=== PATIENT | male | born 1990 | race African-American/Black ===

== ENCOUNTER 2018-04-09 10:54 | Emergency (ER) | payer SELFPAY ==
[~2018-04-09] VITALS: Ht 160 cm; Wt 56.7 kg
--- NOTE | 2018-04-09 11:15 | NUR ---
BIB [facility] 860, CALLED 911, SUICIDAL IDEATION WITH NO PLAN AT THIS TIME. ON ASSESSMENT, PT DENIES SI, HI. STATES HE WAS "JUST HANGING OUT AT HOME WHEN THE POLICE CAME". PROCEED TO BECOME INCREASINGLY AGITATED AND ARGUING WITH STAFF AND POLICE OFFICERS. PT IS AOX4, AMB, TACHYCARDIC, RR EVEN AND UNLABORED. SKIN CLEAN INTACT. NO ACUTE DISTRESS NOTED. SEEN BY JC DE JESUS AND DR THOMAS. AWAITING ORDERS.
[2018-04-09] MEDS ORDERED: LORAZEPAM INJ 2 MG/ML VIAL ONE (11:17)
[2018-04-09] MEDS ORDERED: HALOPERIDOL LACTATE INJ 5 MG/ML VIAL ONE (11:17)
--- NOTE | 2018-04-09 11:25 | NUR ---
PT PLACED ON MONITOR PER PROTOCOL AFTER MEDICATION ADMINISTRATION
[2018-04-09] MEDS ORDERED: HALOPERIDOL LACTATE INJ 5 MG/ML VIAL IM ONE (11:30)
[2018-04-09] MEDS ORDERED: LORAZEPAM INJ 2 MG/ML VIAL IM ONE (11:30)
--- NOTE | 2018-04-09 11:31 | NUR ---
PT VOMITED X2 Addendum: 04/09/18 at 1201 by CJUWONO MD AWARE
[2018-04-09 11:50] LABS: BASOPHILS # (AUTO) 0.1 /CMM (0.0-0.2); BASOPHILS % (AUTO) 0.5 % (0.0-2.0); EOSINOPHILS % (AUTO) 0.5 % (0.0-6.0); HEMATOCRIT 49 % (39-51); HEMOGLOBIN 16.4 g/dL (13.5-17.5); LYMPHOCYTES # (AUTO) 2.8 /CMM (0.8-4.8); LYMPHOCYTES % (AUTO) 22.8 % (20.0-44.0); MEAN CORPUSCULAR HGB CONC 34 g/dl (31.0-36.0); MEAN CORPUSCULAR VOLUME 89 fL (80-96); MONOCYTES # (AUTO) 0.5 /CMM (0.1-1.30); MONOCYTES % (AUTO) 3.8 % (2.0-12.0); NEUTROPHILS % (AUTO) 72.4 % (43.0-81.0); PLATELET COUNT (AUTO) 260 /CMM (150-450); RED BLOOD CELL COUNT(AUTO) 5.53 MIL/uL (4.5-6.0); WHITE BLOOD COUNT (AUTO) 12.4 K/uL (4.3-11.0)
--- NOTE | 2018-04-09 11:50 | NUR ---
1:1 SITTER REQUESTED FROM [facility]
[2018-04-09 12:01] LABS: CALCIUM, SERUM 9.1 mg/dL (8.5-10.1); POTASSIUM 3.7 mmol/L (3.5-5.1)
[2018-04-09 12:05] LABS: ALBUMIN 4.3 g/dL (3.4-5.0); BILIRUBIN,DIRECT 0.2 mg/dL (0.0-0.2); BILIRUBIN,TOTAL 0.6 mg/dL (0.2-1.0); SALICYLATE 1.2 mg/dL (2.8-20.0); TOTAL PROTEIN, SERUM 8.6 g/dL (6.4-8.2)
--- NOTE | 2018-04-09 12:30 | NUR ---
SITTER AT BEDSIDE, RESTRAINTS DC
--- NOTE | 2018-04-09 13:10 | NUR ---
PT RESTING IN BED, SNORING. VSS. WILL CONT TO MONITOR.
--- NOTE | 2018-04-09 14:25 | NUR ---
PATIENTS CALLED AND LEFT CONTACT INFO LEROY CRISTOBAL
--- NOTE | 2018-04-09 14:55 | NUR ---
Patient is resting comfortably in bed with eyes closed. Easily aroused. VSS
--- NOTE | 2018-04-09 16:03 | NUR ---
GAVE BLANKET AND ORANGE JUICE PER PT REQUEST
[2018-04-09 17:12] LABS: APPEARANCE,URINE Clear (CLEAR); BILIRUBIN,URINE Negative (NEGATIVE); BLOOD, URINE Negative Ery/uL (NEGATIVE); COLOR,URINE Yellow (YELLOW); KETONES,URINE 15 (NEGATIVE); LEUKOCYTE ESTERASE ,URINE Negative (NEGATIVE); NITRITE, URINE Negative (NEGATIVE); PROTEIN,URINE Negative (NEGATIVE); UGLUCOSE Negative (NEGATIVE); UROBILINOGEN,URINE 0.2 EU/dL (0.2)
[2018-04-09 17:42] LABS: BACTERIA,URINE None seen /HPF (None Seen); RBC,URINE 0-2 /HPF (0-2); SQUAMOUS EPITHELIAL CELL,UR Few /HPF (None Seen); WBC,URINE 0-2 /HPF (0-3)
--- NOTE | 2018-04-09 17:52 | NUR ---
Patient is resting comfortably in bed with eyes closed. Easily aroused. VSS
--- NOTE | 2018-04-09 18:09 | NUR ---
CALLED RASHAUN DIRECTOR SALES SUPPORT.
--- NOTE | 2018-04-09 19:30 | NUR ---
PINKY AT BEDSIDE FOR EVAL.
--- NOTE | 2018-04-09 20:58 | NUR ---
Patient is resting comfortably in bed with eyes closed. Easily aroused. VSS
--- NOTE | 2018-04-09 21:29 | NUR ---
Mitali bejarano in ED - 04/09/18 at 2134 by BROCK BP CONTINUES TO BE BELOW 100/60, MD AWARE
--- NOTE | 2018-04-09 22:38 | NUR ---
5150 hold discontinued by Suyapa PARNELL Power Barker Operator.
--- NOTE | 2018-04-09 23:18 | NUR ---
pt ok to discharge per dajuan monroy. Patient discharged to home in stable condition. Written and verbal after care instructions given. Patient verbalizes understanding of instruction.Patient is awake and alert to self, day, and place.pt ambulatory with a steady gait
[2018-04-10 04:57] VITALS: BP 124/80
== END 2018-04-09 23:20 | disposition home or self-care (01) ==
LOC: ER 10:56
DX: R45.851 Suicidal ideations (principal); F10.129 Alcohol abuse with intoxication, unspecified; F19.10 Other psychoactive substance abuse, uncomplicated; F31.9 Bipolar disorder, unspecified; F17.200 Nicotine dependence, unspecified, uncomplicated; Y90.7 Blood alcohol level of 200-239 mg/100 ml
CPT/HCPCS: 36415; 80048-TC; 80076-TC; 80305; 81000-TC; 85025-TC; G0480; J1630; J2060

== ENCOUNTER 2018-10-30 15:26 | Emergency (ER) | payer MEDICAID ==
[~2018-10-30] VITALS: Ht 170.2 cm; Wt 70.3 kg
[2018-10-30 16:10] VITALS: BP 151/89
--- NOTE | 2018-10-30 16:21 | NUR ---
PT DID NOT WANT BE SEEN BY MD. PT WALKED OUT OF EMERGECNY ROOM, PT AMBULATORY WITH STEADY GAIT
== END 2018-10-30 16:23 | disposition left against medical advice (07) ==
LOC: ER 15:31
DX: Z53.21 Procedure and treatment not carried out due to patient leaving prior to being seen by health care provider (principal)

== ENCOUNTER 2019-02-01 22:52 | Emergency (ER) | payer MEDICAID, OTHER ==
[~2019-02-01] VITALS: Ht 170.2 cm; Wt 70.3 kg
--- NOTE | 2019-02-01 23:17 | NUR ---
PT PUT ON 2L N/C. PT WAS SAT 94% ON ROOM AIR. PER DR MEZA. PT NOW SAT 97%
[2019-02-01] MEDS ORDERED: IV NS 0.9% 1,000 ML BAG IV ONE (23:30)
[2019-02-01] MEDS ORDERED: ONDANSETRON HCL/PF 4 MG/2 ML VIAL IVP ONE (23:30)
[2019-02-01 23:34] LABS: BASOPHILS # (AUTO) 0.1 /CMM (0.0-0.2); BASOPHILS % (AUTO) 3.7 % (0.0-2.0); EOSINOPHILS % (AUTO) 0.8 % (0.0-6.0); HEMATOCRIT 39 % (39-51); HEMOGLOBIN 13.3 g/dL (13.5-17.5); LYMPHOCYTES # (AUTO) 1.5 /CMM (0.8-4.8); LYMPHOCYTES % (AUTO) 48.9 % (20.0-44.0); MEAN CORPUSCULAR HGB CONC 34 g/dl (31.0-36.0); MEAN CORPUSCULAR VOLUME 92 fL (80-96); MONOCYTES # (AUTO) 0.4 /CMM (0.1-1.30); MONOCYTES % (AUTO) 12.7 % (2.0-12.0); NEUTROPHILS # (AUTO) 1.1 /CMM (1.8-8.9); NEUTROPHILS % (AUTO) 33.9 % (43.0-81.0); PLATELET COUNT (AUTO) 412 /CMM (150-450); RED BLOOD CELL COUNT(AUTO) 4.29 MIL/uL (4.5-6.0); WHITE BLOOD COUNT (AUTO) 3.1 K/uL (4.3-11.0)
[2019-02-01] MEDS ORDERED: ONDANSETRON HCL/PF 4 MG/2 ML VIAL ONE (23:37)
--- NOTE | 2019-02-01 23:40 | NUR ---
PT BROUGHT TO CT
--- NOTE | 2019-02-01 23:40 | NUR ---
ASUME CARE OF PT. PT BIBRA C/O ETOH AND TOOK UNKNOWN AMOUNT OF SERAQUEL WAITER/WAITRESS CAPTAIN. AAOX3. PT INTERMITENTLY SLEEPING. ON 2L OF 02. 20G RAC WAITER/WAITRESS CAPTAIN. WILL CONTINUE TO MONITOR.
--- NOTE | 2019-02-01 23:42 | NUR ---
[place] [facility] AT [facility]
--- NOTE | 2019-02-01 23:48 | NUR ---
PT BROUGHT BACK FROM CT
[2019-02-02 00:01] LABS: CREATININE 0.8 mg/dL (0.6-1.3); POTASSIUM 3.7 mmol/L (3.5-5.1)
[2019-02-02 00:08] LABS: ALBUMIN 3.4 g/dL (3.4-5.0); BILIRUBIN,TOTAL 0.1 mg/dL (0.2-1.0); TOTAL PROTEIN, SERUM 6.9 g/dL (6.4-8.2)
[2019-02-02] MEDS ORDERED: IV D5/ 0.9% NACL 1,000 ML IV ONE (00:40)
--- NOTE | 2019-02-02 02:05 | NUR ---
Patient is resting comfortably in bed with eyes closed. Easily aroused. VSS.
--- NOTE | 2019-02-02 02:49 | NUR ---
Patient is resting comfortably in bed with eyes closed. Easily aroused. VSS
--- NOTE | 2019-02-02 03:25 | NUR ---
PT USED THE URINAL. APPROX 650 ML YELLOW URINE OUTPUT NOTED. SAMPLE SENT TO LAB.
[2019-02-02] MEDS ORDERED: IV NS 0.9% 1,000 ML BAG IV ONE (03:30)
[2019-02-02 03:35] LABS: APPEARANCE,URINE Clear (CLEAR); BILIRUBIN,URINE Negative (NEGATIVE); BLOOD, URINE Negative Ery/uL (NEGATIVE); COLOR,URINE Yellow (YELLOW); KETONES,URINE Negative (NEGATIVE); LEUKOCYTE ESTERASE ,URINE Negative (NEGATIVE); NITRITE, URINE Negative (NEGATIVE); PH,URINE 6.5 (5.0-8.0); PROTEIN,URINE Negative (NEGATIVE); UGLUCOSE 500 MG/DL mg/dL (NEGATIVE); UROBILINOGEN,URINE 0.2 EU/dL (0.2)
--- NOTE | 2019-02-02 04:42 | NUR ---
Patient is resting comfortably in bed. Easily aroused. VSS.
--- NOTE | 2019-02-02 07:13 | NUR ---
Patient is resting comfortably in bed with eyes closed. Easily aroused. VSS
--- NOTE | 2019-02-02 07:30 | NUR ---
Patient is resting comfortably in bed with eyes closed. Easily aroused. VSS
--- NOTE | 2019-02-02 07:33 | NUR ---
REPORT GIVEN TO SOLOMON PARNELL FOR AURA
--- NOTE | 2019-02-02 07:34 | NUR ---
REPORT RECEIVED FROM ARABELLA PARNELL FOR AURA
--- NOTE | 2019-02-02 08:16 | NUR ---
MASTER DYER, ALONDRA AT BEDSIDE
--- NOTE | 2019-02-02 08:23 | NUR ---
RICHIE CESPEDES AT [facility].
--- NOTE | 2019-02-02 08:37 | NUR ---
Social service consult requested by DANIELLE Morales for alcohol abuse. Pt. is a 28 year old male who was brought to [facility] from a residential house where he was found drinking alcohol and possibly took some Seroquel. Pt. has been in the ED for the past 9 hours. ROB met with the pt. bedside. Pt. is alert and oriented x 4. Pt. appears disheveled. Pt. states he resides at a sober living located in [place]. Pt. is an alcoholic and states he drinks "a lot of vodka" daily and had a lot to drink last night. Pt. has only been at his sober living for the past 3 days. Pt. was at [facility] in November, however did not complete the program due to being kicked out. Pt. requested for ROB to call his [id number] Sylvia Crow to get address and contact to the sober living he resides at. ROB called Sylvia who informed ROB that pt. will need to call [place], window systems administrator prior to going back to the sober living. ROB called [place] and left him a voicemail message requesting a call back.
--- NOTE | 2019-02-02 09:04 | NUR ---
FOOD TRAY PROVIDED.
--- NOTE | 2019-02-02 09:08 | NUR ---
SPOKED TO [facility] PT IS NOT ACCEPTED.
--- NOTE | 2019-02-02 09:31 | NUR ---
Patient is resting comfortably in bed with eyes closed. Easily aroused. VSS
[2019-02-02 09:32] VITALS: BP 104/72
--- NOTE | 2019-02-02 09:40 | NUR ---
ROB contacted DANIELLE Morales in ED to inquire if pt. has spoken with [place]. Per DANIELLE Morales, pt. is not accepted back to the facility. Pt. wants to be discharged to his mother's house. ROB informed Andrew to contact nursing film processing supervisor for taxi voucher for pt. to go to his mother's house. No other social service needs are requested at this time. SW is available if needed. Pt. was provided with appropriate clothing and shoes.
--- NOTE | 2019-02-02 09:52 | NUR ---
Note carlee in EDM - 02/02/19 at 0953 by ALIA Patient discharged to home in stable condition. Written and verbal after care instructions given. Patient verbalizes understanding of instruction. Tap card given. IV removed. Catheter intact and site benign. Pressure and 4x4 applied to site. No bleeding noted.
--- NOTE | 2019-02-02 09:52 | NUR ---
Patient discharged to home in stable condition. Written and verbal after care instructions given. Patient verbalizes understanding of instruction. IV removed. Catheter intact and site benign. Pressure and 4x4 applied to site. No bleeding noted.
== END 2019-02-02 09:54 | disposition home or self-care (01) ==
LOC: ER 22:53
DX: F10.121 Alcohol abuse with intoxication delirium (principal); F31.9 Bipolar disorder, unspecified; R51 Headache; R94.31 Abnormal electrocardiogram [ECG] [EKG]; F17.200 Nicotine dependence, unspecified, uncomplicated; Y90.8 Blood alcohol level of 240 mg/100 ml or more
CPT/HCPCS: 36415; 70450; 72125; 80048; 80076; 80305; 80307; 80329; 81001; 82140; 84484; 85025; 93005; 96374; 99284; G0480; J2405; J7030 ×2; 81000-TC; J7070

== ENCOUNTER 2022-03-06 05:44 | Inpatient (IN) | payer OTHER ==
[~2022-03-06] VITALS: Ht 162.6 cm; Wt 58.1 kg
--- NOTE | 2022-03-06 05:55 | NUR ---
gaurav c/o etoh. vss.
[2022-03-06] MEDS ORDERED: ONDANSETRON 4 MG TAB.RAPDIS ONE (06:47)
[2022-03-06] MEDS ORDERED: LORAZEPAM INJ 2 MG/ML VIAL ONE ×3 (06:48→09:10)
[2022-03-06] MEDS ORDERED: LORAZEPAM INJ 2 MG/ML VIAL IM ONE (07:00)
[2022-03-06] MEDS ORDERED: ONDANSETRON 4 MG TAB.RAPDIS SL ONE (07:00)
[2022-03-06] MEDS ORDERED: IV NS 0.9% 1,000 ML IV ONE (08:00)
[2022-03-06] MEDS ORDERED: LORAZEPAM INJ 2 MG/ML VIAL IV ONE ×3 (08:00→09:30)
[2022-03-06] MEDS ORDERED: Thiamine 100 MG in IV D5W 50 ML IV SCH (08:00)
[2022-03-06 08:50] LABS: BASOPHILS # (AUTO) 0.1 K/uL (0.0-0.2); BASOPHILS % (AUTO) 0.6 % (0.0-2.0); HEMATOCRIT 39 % (39-51); HEMOGLOBIN 12.8 g/dL (13.5-17.5); LYMPHOCYTES # (AUTO) 0.6 K/uL (0.8-4.8); LYMPHOCYTES % (AUTO) 5.7 % (20.0-44.0); MEAN CORPUSCULAR HGB CONC 33 g/dl (31.0-36.0); MEAN CORPUSCULAR VOLUME 88 fL (80-96); MONOCYTES # (AUTO) 0.5 K/uL (0.1-1.30); NEUTROPHILS # (AUTO) 8.7 K/uL (1.8-8.9); NEUTROPHILS % (AUTO) 88.7 % (43.0-81.0); PLATELET COUNT (AUTO) 228 K/uL (150-450); WHITE BLOOD COUNT (AUTO) 9.8 K/uL (4.3-11.0)
[2022-03-06 08:57] LABS: CALCIUM, SERUM 7.4 mg/dL (8.5-10.1); CREATININE 0.8 mg/dL (0.6-1.3); POTASSIUM 3.5 mmol/L (3.5-5.1)
[2022-03-06 09:03] LABS: ALBUMIN 3.3 g/dL (3.4-5.0); BILIRUBIN,TOTAL 0.4 mg/dL (0.2-1.0); TOTAL PROTEIN, SERUM 6.8 g/dL (6.4-8.2)
--- NOTE | 2022-03-06 09:15 | NUR ---
patient connected to the monitor. Food provided and tolerated well. Still shaking ativan given as ordered. Will continue to monitor accordingly.
--- NOTE | 2022-03-06 09:45 | NUR ---
covid swab collected and sent to lab.
[2022-03-06] MEDS ORDERED: ACETAMINOPHEN 325 MG TABLET PO PRN (10:00)
[2022-03-06] MEDS ORDERED: CHLORDIAZEPOXIDE HCL 25 MG CAPSULE PO PRN (10:00)
[2022-03-06] MEDS ORDERED: Z GUARD REMEDY 4 OZ OINT TP PRN (10:00)
--- NOTE | 2022-03-06 10:55 | NUR ---
received a call from Janee JEAN from [facility] management gave verbal auth to admit patient in the hospital.
[2022-03-06] MEDS ORDERED: LURA40TA PO (11:47)
[2022-03-06] MEDS ORDERED: ARIP15TA3 PO (11:47)
[2022-03-06] MEDS ORDERED: TRAZ-182 PO (11:47)
[2022-03-06] MEDS ORDERED: QUET200T PO (11:47)
--- NOTE | 2022-03-06 12:04 | NUR ---
room assigned. 323.1 admitting aware
--- NOTE | 2022-03-06 12:35 | NUR ---
report given to Genny PARNELL to continue care.
--- NOTE | 2022-03-06 12:52 | NUR ---
Wheeled patient via gurney accompanied by RN and emt in no distress. RN assigned at bedside to assume care.
[2022-03-06] MEDS: ONDANSETRON HCL/PF 4 MG/2 ML VIAL IVP PRN ×2 (13:11→19:30)
[2022-03-06] MEDS: IV NS 0.9% 1,000 ML IV PRN ×2 (13:11→23:12)
[2022-03-06] MEDS: HYDROCODONE/APAP 5/325MG TABLET PO PRN (13:21)
[2022-03-06 13:55] VITALS: BP 148/74
--- NOTE | 2022-03-06 14:00 | NUR ---
RN ADMITTING NOTES RECEIVED PATIENT VIA MAYITO ACCOMPANIED BY TWO ER STAFF. PATIENT IS A/Ox3-4 ABLE TO MAKE NEEDS KNOWN. IV ACCESS R HAND #20. INTACT AND PATENT. PATIENT ON ROOM AIR NO S/S OF RESPIRATORY DISTRESS OR DISCOMFORT. PATIENT CONNECTED TO TELE MONITORING SHOWING SINUS TACH HR 119. PATIENT HAD EPISODE OF VOMITING BEFORE ARRIVING TO THE FLOOR AND ANOTHER ONCE IN BED, PRN ZOFRAN ADMINISTERED. PATIENT ALSO HAVING TREMORS AND SHAKING, PRN LIBRIUM ADMINISTERED. PATIENT COMPLAINED OF MODERATE PAIN OF HIS ABDOMEN AND LOWER BACK, PRN NARCO [phone] ADMINISTERED. FULL BODY ASSESSMENT COMPLETED: CARDIAC SOUNDS WNL, LUNG SOUND WNL, GI/ CONTINENT USES URINAL, SKIN INTACT. SAFETY MEASURES IN PLACE: BED LOCKED AND IN LOWEST POSITION, SIDE RAILS UP x2, CALL LIGHT WITHIN REACH, HOB ELEVATED. WILL CONTINUE TO MONITOR.
[2022-03-06 16:00] VITALS: BP 149/95
[2022-03-06] MEDS: MORPHINE SULFATE INJ 4 MG/ML DISP.SYRIN IV PRN (17:06)
--- NOTE | 2022-03-06 17:40 | NUR ---
RN NOTES PATIENT COMPLAINED OF PAIN OF ABDOMEN, PRN MORPHINE ADMINISTERED. WILL CONTINUE TO MONITOR.
--- NOTE | 2022-03-06 19:01 | NUR ---
BUILDING RENTAL MANAGER CLOSING NOTES PATIENT SLEEPING IN BED, A/Ox4. ABLE TO VERBALIZE NEEDS. STABLE ON ROOM AIR, NO S/S OF RESPIRATORY DISTRESS. PATIENT IS ON TELE MONITORING SHOWING SINUS TACH HR 105. NO C/O OR S/S OF DISTRESS OR DISCOMFORT. IV ACCESS R HAND #20 G NS @125 ML/HR. INTACT AND PATENT. PATIENT USES URINAL. SKIN IS INTACT. ALL PRESCRIBED MEDICATION ADMINISTERED. SAFETY MEASURES MAINTAINED: BED LOCKED AND IN LOWEST POSITION, SIDE RAILS UPx2, CALL LIGHT WITHIN REACH, HOB ELEVATED. WILL ENDORSE TO NEXT SHIFT ANY AURA.
--- NOTE | 2022-03-06 19:25 | NUR ---
MUSEUM SECURITY CHIEF OPENING NOTES RECEIVED PATIENT AWAKE IN BED. PATIENT IS ALERT AND ORIENTED TIMES 4. NOTED WITH SHAKING AND TALKING IN LOW PITCH SOUND. NOTED WITH 2 EPISODES OF VOMITING. AND SHAKING. IV ACCESS ON THE RIGHT HAND AJITH # 20 INTACT, RUNNING NS AT 125 ML/HR. ON TELE MONITOR READING ST 105. ABLE TO MAKE NEEDS KNOWN. WILL ADMINISTER PRN LIBRIUM AND ZOFRAN FOR VOMITING. PADDED SIDE RAILS FOR SEIZURE PRECAUTION. HOB ELEVATED FOR ASPIRATION PRECAUTION. ALL SAFETY MEASURES IN PLACE. GAVE 2 ICE PACKS UNDER ARMS AND WET TOWEL ON THE FOREHEAD FOR COMFORT. SIDE RAILS UP TIMES 2. BED LOCKED ON. TABLE AND CALL LIGHT IN EASY REACH. REMINDED THE PATIENT TO CALL FOR ANY ASSISTANCE AND AVOID TO STAND UP. PATIENT VERBALIZED UNDERSTANDING. WILL CONTINUE TO MONITOR CLOSELY.
[2022-03-06] MEDS: CHLORDIAZEPOXIDE HCL 25 MG CAPSULE PO PRN (19:27)
--- NOTE | 2022-03-06 19:27 | NUR ---
RN NOTES PRN LIBRIUM GIVEN ORDERED AT 1927 PM.
--- NOTE | 2022-03-06 19:30 | NUR ---
RN NOTES PRN ZOFRAN GIVEN ORDERED FOR 2 EPISODES OF VOMITING.
[2022-03-06 20:00] VITALS: BP 145/83
[2022-03-06] MEDS: TRAZODONE 50 MG TABLET PO SCH (21:48)
[2022-03-06] MEDS: QUETIAPINE FUMARATE 100 MG TABLET PO SCH (21:48)
[2022-03-07] VITALS: BP 129/75
[2022-03-07 04:00] VITALS: BP 130/86
[2022-03-07] MEDS: MORPHINE SULFATE INJ 4 MG/ML DISP.SYRIN IV PRN ×3 (04:26→19:44)
--- NOTE | 2022-03-07 04:26 | NUR ---
RN NOTES PRN MORPHINE GIVEN ORDERED AT 0426 FOR ABDOMINAL PAIN OF 8/10. WILL REASSESS IN 30 MIN.
[2022-03-07 05:55] LABS: CALCIUM, SERUM 8.5 mg/dL (8.5-10.1); CREATININE 0.9 mg/dL (0.6-1.3); MAGNESIUM 1.8 mg/dL (1.8-2.4); POTASSIUM 3.1 mmol/L (3.5-5.1)
--- NOTE | 2022-03-07 06:13 | NUR ---
RT EKG completed at 0530, results given to psychiatric aide Grace.
--- NOTE | 2022-03-07 06:35 | NUR ---
MOTORCYCLE MECHANIC APPRENTICE CLOSING NOTES PATIENT AWAKE IN BED. PATIENT IS ALERT AND ORIENTED TIMES 4. IV ACCESS ON THE RIGHT HAND AJITH # 20 INTACT, RUNNING NS AT 125 ML/HR. ON TELE MONITOR READING SR 95 105. ABLE TO MAKE NEEDS KNOWN. HOB ELEVATED FOR ASPIRATION PRECAUTION. ALL DUE MEDS GIVEN ORDERED. ALL SAFETY MEASURES IN PLACE. SIDE RAILS UP TIMES 2. BED LOCKED . TABLE AND CALL LIGHT IN EASY REACH. REMINDED THE PATIENT TO CALL FOR ANY ASSISTANCE AND AVOID TO STAND UP. PATIENT VERBALIZED UNDERSTANDING. WILL ENDORSE FOR AURA.
--- NOTE | 2022-03-07 07:25 | NUR ---
SAFE DEPOSIT BOX RENTAL CLERK OPENING NOTES RECEIVED PATIENT AWAKE IN BED, AOX4, ABLE TO MAKE NEEDS KNOWN. ON ROOM AIR WITH NO SOB NOTED. IV ACCESS ON THE RIGHT HAND G#20 INTACT, RUNNING NS AT 125 ML/HR. ON TELE MONITOR, CURRENTLY READING SR 83 BPM. SAFETY MEASURES IN PLACE: SIDE RAILS UP TIMES 2, PADDED SEIZURE PRECAUTION. BED LOCKED IN LOWEST POSITION, TRAY TABLE AND CALL LIGHT IN EASY REACH. PATIENT IS AWARE TO USE THE CALL LIGHT FOR ASSISTANCE MAINTAINED ASPIRATION PRECAUTION: HOB ELEVATED. WILL CONTINUE TO MONITOR.
[2022-03-07 07:29] LABS: BASOPHILS % (AUTO) 0.6 % (0.0-2.0); EOSINOPHILS % (AUTO) 1.7 % (0.0-6.0); HEMATOCRIT 42 % (39-51); HEMOGLOBIN 13.9 g/dL (13.5-17.5); LYMPHOCYTES # (AUTO) 1.4 K/uL (0.8-4.8); LYMPHOCYTES % (AUTO) 28.8 % (20.0-44.0); MEAN CORPUSCULAR HGB CONC 33 g/dl (31.0-36.0); MEAN CORPUSCULAR VOLUME 89 fL (80-96); MONOCYTES # (AUTO) 0.3 K/uL (0.1-1.30); MONOCYTES % (AUTO) 6.9 % (2.0-12.0); PLATELET COUNT (AUTO) 192 K/uL (150-450); RED BLOOD CELL COUNT(AUTO) 4.66 MIL/uL (4.5-6.0); WHITE BLOOD COUNT (AUTO) 4.8 K/uL (4.3-11.0)
[2022-03-07] MEDS: PANTOPRAZOLE 40 MG TABLET.DR PO SCH (07:53)
[2022-03-07] MEDS: CHLORDIAZEPOXIDE HCL 25 MG CAPSULE PO PRN ×3 (07:53→21:01)
[2022-03-07 08:00] VITALS: BP 143/84
--- NOTE | 2022-03-07 08:00 | NUR ---
RN NOTES - PATIENT APPEARS TO BE AGITATED, SHOWING HAND TREMORS, SWEATING, GIVEN LIBRIUM 50 MG PRN ORDERED, WILL CONTINUE TO MONITOR.
[2022-03-07] MEDS: HYDROCODONE/APAP 5/325MG TABLET PO PRN ×2 (08:02→16:57)
--- NOTE | 2022-03-07 08:05 | NUR ---
RN NOTES - PAIN MANAGEMENT PATIENT COMPLAINING OF 7/10 ABDOMINAL PAIN, SWEATING, GUARDING. ADMINISTERED 5/325 NORCO AND WILL CONTINUE TO MONITOR.
[2022-03-07] MEDS: ARIPIPRAZOLE 2 MG TABLET PO SCH (08:40)
[2022-03-07] MEDS: THIAMINE HCL 100 MG TABLET PO SCH (08:40)
[2022-03-07] MEDS ORDERED: POTASSIUM CHLORIDE 20 MEQ POWDER PACKET PO ONE ×2 (09:00→12:00)
[2022-03-07] MEDS: IV NS 0.9% 1,000 ML IV PRN ×2 (09:27→16:57)
[2022-03-07 12:00] VITALS: BP 123/70
--- NOTE | 2022-03-07 12:30 | NUR ---
RN NOTES - PAIN MANAGEMENT PATIENT COMPLAINING OF 8/10 ABDOMINAL PAIN, SWEATING, GUARDING. ADMINISTERED MORPHINE SULFATE 4MG IV, WILL CONTINUE TO MONITOR.
--- NOTE | 2022-03-07 14:20 | NUR ---
RN NOTES - AGITATED AFTER PT EVAL, SHOWING HAND TREMORS, SWEATING, GIVEN LIBRIUM 50 MG PRN ORDERED, WILL CONTINUE TO MONITOR.
[2022-03-07 16:00] VITALS: BP 136/84
--- NOTE | 2022-03-07 17:00 | NUR ---
RN NOTES - PAIN MANAGEMENT PATIENT COMPLAINING OF 7/10 ABDOMINAL PAIN, SWEATING, GUARDING. ADMINISTERED 5/325 NORCO AND WILL CONTINUE TO MONITOR.
--- NOTE | 2022-03-07 19:40 | NUR ---
DIVIDEND DEPOSIT ENTRY CLERK CLOSING NOTES PATIENT AWAKE IN BED, AOX4, ABLE TO MAKE NEEDS KNOWN. ON ROOM AIR WITH NO SOB NOTED NOR ANY APPARENT DISTRESS. IV ACCESS ON THE RIGHT HAND G#20 INTACT, RUNNING NS AT 125 ML/HR. ON TELE MONITOR SHOWING READING OF SR 90 BPM. SAFETY MEASURES MAINTAINED: SIDE RAILS UP TIMES 2, PADDED SEIZURE PRECAUTION. BED LOCKED IN LOWEST POSITION, TRAY TABLE AND CALL LIGHT IN EASY REACH. PATIENT IS AWARE TO USE THE CALL LIGHT FOR ASSISTANCE MAINTAINED ASPIRATION PRECAUTION: HOB ELEVATED. NO N/V NOTED, NO PAIN NOR DISCOMFORT NOTED. ENDORSED TO THE NEXT STENCILING MACHINE TENDER NURSE.
--- NOTE | 2022-03-07 19:49 | NUR ---
INSPECTOR HAIRSPRING TRUING OPENING NOTES: RECEIVED PATIENT AWAKE IN BED, BED IN LOW POSITION CALL LIGHTS WITHIN REACH, NO COMPLAIN OF PAIN AND DISCOMFORT AT THIS TIME, ON ROOM AIR SATURATING WELL, PATIENT IS A/OX4 ABLE TO MAKE NEEDS KNOWN, ON TELE MONITOR- SR 78 , IV LINE AT RIGHT HAND #20 WITH ONGOING 0.9NS@125ML/HR INFUSING WELL, PATIENT KEPT CLEAN AND DRY ALL NEEDS MET WILL CONTINUE TO MONITOR.
[2022-03-07 19:57] VITALS: BP 148/96
[2022-03-07] MEDS: TRAZODONE 50 MG TABLET PO SCH (21:46)
[2022-03-07] MEDS: QUETIAPINE FUMARATE 100 MG TABLET PO SCH (21:46)
[2022-03-08] VITALS: BP 119/71
[2022-03-08] MEDS: MORPHINE SULFATE INJ 4 MG/ML DISP.SYRIN IV PRN ×3 (00:13→09:34)
[2022-03-08] MEDS: IV NS 0.9% 1,000 ML IV PRN (00:13)
[2022-03-08 04:00] VITALS: BP 112/63
[2022-03-08 05:57] LABS: CALCIUM, SERUM 7.8 mg/dL (8.5-10.1); CREATININE 0.9 mg/dL (0.6-1.3); POTASSIUM 3.4 mmol/L (3.5-5.1)
--- NOTE | 2022-03-08 06:23 | NUR ---
BOILER SHOP MECHANIC CLOSING NOTES: PATIENT SLEEP IN BED COMFORTABLY, BED IN LOW POSITION CALL LIGHT WITHIN REACH, NO COMPLAIN OF PAIN AND DISCOMFORT AT THIS TIME, ON O2 INHALATION AT 2LPM SATURATING WELL, PATIENT WAS A/OX 4 ABLE TO MAKE NEEDS KNOWN, ON PAIN MANAGEMENT ON TELE [id number], PATIENT KEPT CLEAN AND DRY ALL NEEDS MET ENDORSE TO INCOMING SHIFT.
[2022-03-08 07:00] VITALS: BP 133/81
--- NOTE | 2022-03-08 07:00 | NUR ---
RADIO SPORTSCASTER OPENING NOTES PATIENT LAYING IN BED, A/O X 3, ABLE TO MAKE NEEDS KNOWN, TOLERATING WELL ON 2 LPM O2 VIA CANNULA WITH NO S/S RESPIRATORY DISTRESS. TELE MONITOR IN PLACE READING NSR 70. SAFETY MEASURES IN PLACE: BED IN LOWEST LOCKED POSITION, SIDE RAILS UP X 2, CALL LIGHT WITHIN REACH. WILL CONTINUE TO MONITOR.
[2022-03-08] MEDS ORDERED: POTASSIUM CHLORIDE 20 MEQ TAB.PRT.SR PO ONE ×2 (08:00→11:00)
[2022-03-08] MEDS: CHLORDIAZEPOXIDE HCL 25 MG CAPSULE PO PRN (08:02)
[2022-03-08] MEDS: HYDROCODONE/APAP 5/325MG TABLET PO PRN (08:09)
[2022-03-08] MEDS: ARIPIPRAZOLE 2 MG TABLET PO SCH (08:10)
[2022-03-08] MEDS: THIAMINE HCL 100 MG TABLET PO SCH (08:10)
[2022-03-08] MEDS: PANTOPRAZOLE 40 MG TABLET.DR PO SCH (08:10)
--- NOTE | 2022-03-08 11:00 | NUR ---
CONVEYOR OPERATORSYSTEMS ADMINISTRATION ANALYST NOTES PATIENT MADE AWARE OF MD DISCHARGE ORDERS AND BECAME VERY AGITATED. PATIENT BEGAN THROWING OBJECTS WITHIN HIS ROOM AND BECAME VERBALLY ABUSIVE AND THREATENING TOWARD STAFF. PATIENT REPEATELY STATED "FUCKING CHINK DOCTOR" AND THREATENED VIOLENCE. PATIENT WAS ESCORTED OFF OF UNIT AND OUT OF HOSPITAL BY SECURITY AND STAFF. IV LINE, ID BAND, AND TELE MONITOR WERE REMOVED PRIOR TO LEAVING FACILITY. PRESCRIPTION GIVEN TO PATIENT. PATIENT STABLE AT TIME OF DISCHARGE. Addendum: 03/08/22 at 1317 by KHADAR PALMER RN [id number]
== END 2022-03-08 11:40 | disposition home or self-care (01) | DRG 422 ==
LOC: ER 05:45 → TELE 12:27
PROVIDERS: ADMIT Nurse Practitioner Acute Care; ATTEND Nurse Practitioner Acute Care
DX: E86.0 Dehydration (principal); F25.9 Schizoaffective disorder, unspecified; F10.239 Alcohol dependence with withdrawal, unspecified; F17.210 Nicotine dependence, cigarettes, uncomplicated; E87.6 Hypokalemia; F31.9 Bipolar disorder, unspecified; G47.00 Insomnia, unspecified
CPT/HCPCS: 36415; 80048-TC; 80053-TC; 83690-TC; 83735-TC; 84100-TC; 85025-TC; 87081-TC; 97112-TC; 97116-TC; 97530-TC; C9803; G0378; G0480; J2060; J2270; J2405; J3411; J7030; J7060; Q0162

== ENCOUNTER 2022-03-25 13:27 | Inpatient (IN) | payer OTHER ==
[~2022-03-25] VITALS: Ht 165.1 cm; Wt 60.3 kg
[~2022-03-25 13:27] MED LIST: ARIP15TA3 PO; LURA40TA PO; QUET200T PO; TRAZ-182 PO
--- NOTE | 2022-03-25 13:27 | NUR ---
TO ER BED 14. BIB RA FROM HOME C/O ALCOHOL WITHDRAWAL PT HAS TREMORS AND STATED THAT HE HAD A SEIZURE THIS MORNING, ABDOMINAL PAIN 9/10. PT STATED THAT HIS LAST DRINK WAS 2 DAYS AGO. VITALS ARE WITHIN NORMAL LIMITS, NO RESPIRATORY DISTRESS NOTED. AWAITING MD BAEZ.
--- NOTE | 2022-03-25 14:06 | NUR ---
ESTABLISHED IV 20G LEFT WRIST. BLOOD DRAWN AND SENT TO LAB.
[2022-03-25 14:33] LABS: BASOPHILS % (AUTO) 0.5 % (0.0-2.0); HEMATOCRIT 43 % (39-51); HEMOGLOBIN 14.2 g/dL (13.5-17.5); LYMPHOCYTES % (AUTO) 13.3 % (20.0-44.0); MEAN CORPUSCULAR HGB CONC 33 g/dl (31.0-36.0); MEAN CORPUSCULAR VOLUME 87 fL (80-96); MONOCYTES # (AUTO) 0.5 K/uL (0.1-1.30); MONOCYTES % (AUTO) 6.8 % (2.0-12.0); NEUTROPHILS % (AUTO) 79.4 % (43.0-81.0); PLATELET COUNT (AUTO) 134 K/uL (150-450); RED BLOOD CELL COUNT(AUTO) 4.88 MIL/uL (4.5-6.0); WHITE BLOOD COUNT (AUTO) 7.6 K/uL (4.3-11.0)
[2022-03-25 14:57] LABS: CALCIUM, SERUM 9.7 mg/dL (8.5-10.1); CARBON DIOXIDE 24 mmol/L (21-32); CHLORIDE 89 mmol/L (98-107); CREATININE 0.9 mg/dL (0.6-1.3); GLUCOSE 99 mg/dL (74-106); POTASSIUM 2.9 mmol/L (3.5-5.1); SODIUM SERUM 126 mmol/L (136-145); UREA NITROGEN, BLOOD 5 mg/dL (7-18)
[2022-03-25] MEDS ORDERED: IV NS 0.9% 1,000 ML IV ONE (15:00)
[2022-03-25] MEDS ORDERED: ONDANSETRON HCL/PF - ER 4 MG/2 ML VIAL IV ONE (15:00)
[2022-03-25] MEDS ORDERED: LORAZEPAM INJ 2 MG/ML VIAL IV ONE ×2 (15:00→18:30)
[2022-03-25] MEDS ORDERED: ONDANSETRON HCL/PF 4 MG/2 ML VIAL ONE (15:02)
[2022-03-25] MEDS ORDERED: LORAZEPAM INJ 2 MG/ML VIAL ONE ×2 (15:03→18:34)
[2022-03-25 15:04] LABS: ALANINE AMINOTRANSFERASE 410 U/L (12-78); ALBUMIN 4.2 g/dL (3.4-5.0); ALCOHOL, BLOOD < 3 mg/dL (0-0); ALKALINE PHOSPHATASE 111 U/L (46-116); ASPARTATE AMINOTRANSFERASE 398 U/L (15-37); BILIRUBIN,DIRECT 0.3 mg/dL (0.0-0.2); BILIRUBIN,TOTAL 1.2 mg/dL (0.2-1.0); TOTAL PROTEIN, SERUM 8.1 g/dL (6.4-8.2)
[2022-03-25 15:10] LABS: ACETAMINOPHEN < 10 ug/ml (10-30)
--- NOTE | 2022-03-25 16:10 | NUR ---
URINE COLLECTED AND SENT
[2022-03-25] MEDS ORDERED: POTASSIUM CL. PREMIX PERIPHER. 50 ML ONE ×4 (16:31→20:50)
[2022-03-25 16:37] LABS: MAGNESIUM 1.4 mg/dL (1.8-2.4)
--- NOTE | 2022-03-25 16:45 | NUR ---
PATIENT TAKEN TO CT VIA MAYITO
[2022-03-25] MEDS: POTASSIUM CL. PREMIX PERIPHER. 50 ML IV SCH ×6 (16:55→23:30)
--- NOTE | 2022-03-25 16:58 | NUR ---
SWAB FOR COVID19 SENT TO LAB
[2022-03-25] MEDS ORDERED: Magnesium 1GM/D5W 100ML PREMIX 100 ML IV SCH (17:00)
--- NOTE | 2022-03-25 17:32 | NUR ---
SPOKE WITH MIRANDA CLARK AND WAS GIVEN VERBAL AUTHORIZATION TO ADMIT
[2022-03-25 17:47] LABS: BILIRUBIN,URINE NEGATIVE (NEGATIVE); COLOR,URINE YELLOW (YELLOW); LEUKOCYTE ESTERASE ,URINE NEGATIVE (NEGATIVE); NITRITE, URINE NEGATIVE (NEGATIVE); PH,URINE 8.5 (5.0-8.0); PROTEIN,URINE NEGATIVE (NEGATIVE); UGLUCOSE NEGATIVE (NEGATIVE)
[2022-03-25] MEDS ORDERED: MORPHINE SULFATE INJ 2 MG/ML DISP.SYRIN IV ONE (18:30)
[2022-03-25] MEDS ORDERED: MORPHINE SULFATE INJ 2 MG/ML DISP.SYRIN ONE (18:34)
[2022-03-25 18:54] LABS: BACTERIA,URINE None seen /HPF (None Seen); RBC,URINE 0-2 /HPF (0-2); SQUAMOUS EPITHELIAL CELL,UR 0-2 /HPF (None Seen); WBC,URINE 0-2 /HPF (0-3)
[2022-03-25] MEDS: Magnesium 1GM/D5W 100ML PREMIX 100 ML IV SCH ×2 (19:00→20:00)
[2022-03-25] MEDS ORDERED: ONDANSETRON HCL/PF 4 MG/2 ML VIAL IVP PRN (21:00)
[2022-03-25] MEDS ORDERED: ACETAMINOPHEN 325 MG TABLET PO PRN (21:00)
--- NOTE | 2022-03-25 21:24 | NUR ---
BED 840-1
--- NOTE | 2022-03-25 21:36 | NUR ---
REPORT GIVEN TO CARA PARNELL ROOM 326-1 FOR AURA
[2022-03-25] MEDS ORDERED: POTASSIUM CL. PREMIX PERIPHER. 100 ML ONE (21:38)
--- NOTE | 2022-03-25 21:50 | NUR ---
RN RECEIVING PATIENT FROM ER NOTE PATIENT ARRIVED TO UNIT STABLE VIA GURNEY FROM ER. A/OX4. NO S/S OF DISTRESS, BREATHING WITHOUT DIFFICULTY ON ROOM AIR. L-WRIST #20 SL INTACT AND PATENT; R-WRIST #22 INTACT AND PATENT. TELE READS SR 96. UPON ASSESSMENT PATIENT REVEALED HE HAS SI AND HI. CHARGE NURSE, JESSICA, NOTIFIED; ON-CALL, JUSTIN, NOTIFIED. PATIENT WAS ORIENTED TO THE UNIT. PATIENT GIVEN CALL ADAMSON AND INSTRUCTED ON ITS USE. PATIENT'S BELONGINGS ACCOUNTED FOR, LOGGED INTO SHEET, AND PLACED IN CHART. TELE MONITOR SUCCESSFULLY ADMINISTERED. SAFETY MEASURES IN PLACE: BED LOCKED AND AT LOWEST POSITION, RAILS UP X2 (PADDED FOR SEIZURE PRECAUTIONS), CALL ADAMSON WITHIN REACH. WILL CONTINUE TO MONITOR PATIENT.
[2022-03-25] MEDS: CHLORDIAZEPOXIDE HCL 25 MG CAPSULE PO SCH (22:45)
[2022-03-25] MEDS: NICOTINE PATCH (14MG) 14 MG PATCH.TD24 TD SCH (22:45)
[2022-03-26] VITALS: BP 137/84
[2022-03-26] MEDS ORDERED: KETOROLAC TROMETHAMINE INJ 30 MG/ML VIAL IV PRN
[2022-03-26 00:42] VITALS: BP 146/90
[2022-03-26] MEDS: KETOROLAC TROMETHAMINE INJ 30 MG/ML VIAL IV PRN ×4 (02:47→22:05)
[2022-03-26] MEDS: IV NS 0.9% 1,000 ML IV PRN ×3 (04:59→21:54)
[2022-03-26] MEDS: CHLORDIAZEPOXIDE HCL 25 MG CAPSULE PO SCH ×3 (05:24→21:24)
[2022-03-26 06:54] LABS: BASOPHILS % (AUTO) 0.4 % (0.0-2.0); EOSINOPHILS % (AUTO) 0.7 % (0.0-6.0); HEMATOCRIT 41 % (39-51); HEMOGLOBIN 13.4 g/dL (13.5-17.5); LYMPHOCYTES # (AUTO) 1.1 K/uL (0.8-4.8); LYMPHOCYTES % (AUTO) 11.5 % (20.0-44.0); MEAN CORPUSCULAR HGB CONC 33 g/dl (31.0-36.0); MEAN CORPUSCULAR VOLUME 89 fL (80-96); MONOCYTES # (AUTO) 0.2 K/uL (0.1-1.30); MONOCYTES % (AUTO) 1.7 % (2.0-12.0); NEUTROPHILS # (AUTO) 7.8 K/uL (1.8-8.9); NEUTROPHILS % (AUTO) 85.7 % (43.0-81.0); PLATELET COUNT (AUTO) 101 K/uL (150-450); RED BLOOD CELL COUNT(AUTO) 4.57 MIL/uL (4.5-6.0); WHITE BLOOD COUNT (AUTO) 9.1 K/uL (4.3-11.0)
--- NOTE | 2022-03-26 07:00 | NUR ---
RN CLOSING NOTE PATIENT ASLEEP IN BED. A/OX4. NO S/S OF DISTRESS, BREATHING WITHOUT DIFFICULTY ON ROOM AIR. R-WRIST #22 INTACT AND PATENT W/ NS 125ML/HR. TELE READS SR 89. SAFETY MEASURES IN PLACE: BED LOCKED AND AT LOWEST POSITION, RAILS UP X2, CALL ADAMSON WITHIN REACH. WILL ENDORSE TO NEXT SHIFT FOR AURA.
[2022-03-26 07:15] LABS: CALCIUM, SERUM 8.9 mg/dL (8.5-10.1); CREATININE 0.8 mg/dL (0.6-1.3); MAGNESIUM 2.3 mg/dL (1.8-2.4); PHOSPHORUS 4.8 mg/dL (2.5-4.9); POTASSIUM 3.1 mmol/L (3.5-5.1)
[2022-03-26 08:00] VITALS: BP 141/72
[2022-03-26] MEDS: THIAMINE HCL 100 MG TABLET PO SCH (08:07)
[2022-03-26] MEDS: PANTOPRAZOLE 40 MG VIAL IV SCH (08:07)
[2022-03-26] MEDS: FOLIC ACID 1 MG TABLET PO SCH (08:07)
[2022-03-26] MEDS: NICOTINE PATCH (14MG) 14 MG PATCH.TD24 TD SCH (08:07)
[2022-03-26] MEDS: LORAZEPAM INJ 2 MG/ML VIAL IV PRN (10:03)
[2022-03-26] MEDS ORDERED: POTASSIUM CHLORIDE 20 MEQ TAB.PRT.SR PO ONE (11:00)
[2022-03-26 12:00] VITALS: BP 138/79
[2022-03-26 16:00] VITALS: BP 138/80
[2022-03-26] MEDS: ARIPIPRAZOLE 5 MG TABLET PO SCH (17:05)
--- NOTE | 2022-03-26 18:35 | NUR ---
END OF SHIFT SUMMARY PATIENT IS A/O X4. ON RA SATURATING WELL. ABLE TO MAKE NEEDS KNOWN. PER PT HIS IV ACCESS WAS REMOVED ACCIDENTALLY. REINSERTED A NEW IV ACCESS ON R HAND #22G, INTACT AND PATENT. PAIN MANAGED WITH TORADOL. POTASSIUM REPLACED. CONTINENT, USES THE URINAL. INDEPENDENT WITH REPOSITIONING. SAFETY MEASURES MAINTAINED. BED IN LOWEST POSITION, BRAKES LOCKED. SIDE RAILS UP X2. CALL LIGHT WITHIN REACH. WILL ENDORSE CONTINUITY OF CARE TO ONCOMING SHIFT.
--- NOTE | 2022-03-26 19:30 | NUR ---
MANAGER ANIMAL OPENING NOTE RECEIVED PT AWAKE IN BED. A/O X4 AND ABLE TO MAKE NEEDS KNOWN. PT STABLE ON ROOM AIR. NO SOB OR S/S OF RESPIRATORY DISTRESS. BREATHING EVEN AND UNLABORED. ON EXTERNAL TROUBLE SHOOTER READING SR 83 BPM. IV ACCESS R HAND 22G, INTACT AND PATENT, RUNNING NS @ 125 ML/HR. SAFETY PRECAUTIONS IN PLACE. BED IN LOWEST LOCKED POSITION, HOB ELEVATED, SIDE RAILS UP X2, AND CALL LIGHT AND TABLE WITHIN REACH. ALL NEEDS MET AT THIS TIME.
[2022-03-26 20:00] VITALS: BP 146/0
[2022-03-26] MEDS ORDERED: QUETIAPINE FUMARATE 100 MG TABLET PO SCH (22:00)
--- NOTE | 2022-03-26 22:05 | NUR ---
RN NOTE PT COMPLAINED OF R ABDOMINAL PAIN 10/24. ADMINISTERED TORADOL 30 MG FOR SEVERE PAIN ORDERED. MADE COMFORTABLE IN BED. ALL NEEDS MET AT THIS TIME.
[2022-03-27] VITALS: BP 115/57
[2022-03-27 04:00] VITALS: BP 112/75
[2022-03-27] MEDS: CHLORDIAZEPOXIDE HCL 25 MG CAPSULE PO SCH ×2 (04:14→12:15)
[2022-03-27] MEDS: KETOROLAC TROMETHAMINE INJ 30 MG/ML VIAL IV PRN ×2 (05:20→11:45)
[2022-03-27 06:46] LABS: BASOPHILS % (AUTO) 0.5 % (0.0-2.0); EOSINOPHILS % (AUTO) 2.8 % (0.0-6.0); HEMATOCRIT 38 % (39-51); HEMOGLOBIN 12.6 g/dL (13.5-17.5); LYMPHOCYTES # (AUTO) 0.9 K/uL (0.8-4.8); LYMPHOCYTES % (AUTO) 15.2 % (20.0-44.0); MEAN CORPUSCULAR HGB CONC 33 g/dl (31.0-36.0); MEAN CORPUSCULAR VOLUME 89 fL (80-96); MONOCYTES # (AUTO) 0.2 K/uL (0.1-1.30); MONOCYTES % (AUTO) 3.6 % (2.0-12.0); NEUTROPHILS # (AUTO) 4.5 K/uL (1.8-8.9); NEUTROPHILS % (AUTO) 77.9 % (43.0-81.0); PLATELET COUNT (AUTO) 90 K/uL (150-450); RED BLOOD CELL COUNT(AUTO) 4.25 MIL/uL (4.5-6.0); WHITE BLOOD COUNT (AUTO) 5.8 K/uL (4.3-11.0)
--- NOTE | 2022-03-27 06:54 | NUR ---
REED CLEANER CLOSING NOTE PT AWAKE IN BED. A/O X4 AND ABLE TO MAKE NEEDS KNOWN. PT STABLE ON ROOM AIR. NO SOB OR S/S OF RESPIRATORY DISTRESS. BREATHING EVEN AND UNLABORED. ON EXTERNAL POND SUPERVISOR READING SR 74 BPM. IV ACCESS AIDEE 22G, INTACT AND PATENT, RUNNING NS @ 125 ML/HR. ALL DUE MEDS GIVEN ORDERED. SAFETY PRECAUTIONS IN PLACE AT ALL TIMES. BED IN LOWEST LOCKED POSITION, HOB ELEVATED, SIDE RAILS UP X2, AND CALL LIGHT AND TABLE WITHIN REACH. ALL NEEDS MET AT THIS TIME AND WILL ENDORSE TO ONCOMING NURSE FOR AURA.
[2022-03-27 06:59] LABS: CALCIUM, SERUM 8.2 mg/dL (8.5-10.1); CREATININE 0.8 mg/dL (0.6-1.3); PHOSPHORUS 4.3 mg/dL (2.5-4.9); POTASSIUM 3.5 mmol/L (3.5-5.1)
[2022-03-27 07:00] VITALS: BP 135/80
--- NOTE | 2022-03-27 07:28 | NUR ---
RN OPENING NOTE RECEIVED PATIENT AWAKE IN BED. A/O X4, NO SIGNS OF ACUTE DISTRESS NOTED. ABLE TO MAKE NEEDS KNOWN. STABLE ON ROOM AIR. NO SOB OR S/SX OF RESPIRATORY DISTRESS, BREATHING EVEN AND UNLABORED. ON TELE MONITOR READING SINUS RHYTHM HR 88 BPM. NOTED WITH IV ACCESS AIDEE 22G, INTACT AND PATENT, RUNNING NS @ 125 ML/HR. SAFETY PRECAUTIONS IN PLACE. BED IN LOWEST AND LOCKED POSITION, HOB ELEVATED, SIDE RAILS UP X2, AND CALL LIGHT AND TABLE WITHIN REACH. WILL CONTINUE TO MONITOR PATIENT.
[2022-03-27] MEDS: PANTOPRAZOLE 40 MG VIAL IV SCH (08:20)
[2022-03-27] MEDS: NICOTINE PATCH (14MG) 14 MG PATCH.TD24 TD SCH (08:20)
[2022-03-27] MEDS: FOLIC ACID 1 MG TABLET PO SCH (08:21)
[2022-03-27] MEDS: ARIPIPRAZOLE 5 MG TABLET PO SCH (08:21)
[2022-03-27] MEDS: THIAMINE HCL 100 MG TABLET PO SCH (08:21)
[2022-03-27] MEDS: LORAZEPAM INJ 2 MG/ML VIAL IV PRN (08:29)
--- NOTE | 2022-03-27 11:30 | NUR ---
RN NOTE PATIENT SEEN BY MAUDE BYRNE NP. DISCUSSED DISCHARGE PLANNING. PATIENT NOT HAPPY ABOUT IT.
--- NOTE | 2022-03-27 13:15 | NUR ---
RN NOTE PATIENT CALLED MY ATTENTION AND VERBALIZED DESIRE TO LEAVE THE HOSPITAL IMMEDIATELY. NOTED THAT PATIENT HAD ALREADY GOT UP FROM THE BED AND WAS DRESSED UP, HE ALSO HAD REMOVED HIS ARM NAMEBAND AND HIS TELE MONITOR DEVICE. EXPLAINED TO HIM THAT LC BYRNE IS JUST WAITING FOR THE PSYCHIATRIST AND LIFT TEAM TECHNICIAN TO SEE HIM AND SHE WILL DISCHARGE HIM TODAY. PATIENT IS UPSET AND SAID THAT HE CAN'T WAIT ANYMORE AND WAS ALSO UPSET AT LC BYRNE BECAUSE PATIENT THINKS THAT HE IS NOT READY TO GO HOME, PATIENT WAS ALSO UPSET BECAUSE IRONER OR PRESSER DIDN'T CHANGE HIS PAIN MEDICATION ORDER BECAUSE PER IRONER OR PRESSER IT'S NOT INDICATED. AMA FORMED SIGNED BY PATIENT, EXPLAINED RISKS OF LEAVING HOSPITAL AMA AND POSSIBLE COMPLICATIONS BUT PATIENT IS ADAMANT TO LEAVE IMMEDIATELY WITHOUT SEEING THE SATELLITE DISH TECHNICIAN AND PSYCHE MD. IV ACCESS ON LEFT UPPER ARM REMOVED, NO BLEEDING NOTED, PRESURE DRESING APPLIED TO SITE. GAVE PATIENT HIS POCKET KNIFE. ACCOMPANIED PATIENT TO THE LOBBY, PATIENT IS AMBULATORY, WITH STEADY GAIT. NO S/SX OF ANY DISTRESS. CN AND MD AWARE OF PT LEAVING AMA.
--- NOTE | 2022-03-27 15:00 | NUR ---
SS consult attempted however, pt. had left AMA
[2022-03-27 18:01] LABS: BAND % (MANUAL) 8 % (0.0-5.0); EOSINOPHILS % (MANUAL) 4 % (0-4); LYMPHOCYTES % (MANUAL) 25 % (16-48); MONOCYTES % (MANUAL) 2 % (0-11.0); NEUTROPHILS % (MANUAL) 61 (42-76)
== END 2022-03-27 13:00 | disposition left against medical advice (07) | DRG 422 ==
LOC: ER 15:10 → TELE 21:41
PROVIDERS: ADMIT Nurse Practitioner Acute Care; ATTEND Registered Nurse
DX: E87.6 Hypokalemia (principal); E86.9 Volume depletion, unspecified; K76.0 Fatty (change of) liver, not elsewhere classified; R56.9 Unspecified convulsions; F25.9 Schizoaffective disorder, unspecified; F10.239 Alcohol dependence with withdrawal, unspecified; E87.1 Hypo-osmolality and hyponatremia; Y90.0 Blood alcohol level of less than 20 mg/100 ml; Z20.822 Contact with and (suspected) exposure to COVID-19; Z79.899 Other long term (current) drug therapy; E83.42 Hypomagnesemia; Z53.29 Procedure and treatment not carried out because of patient's decision for other reasons; F17.200 Nicotine dependence, unspecified, uncomplicated; G47.00 Insomnia, unspecified; R74.01 Elevation of levels of liver transaminase levels; Z91.51 Personal history of suicidal behavior; F31.9 Bipolar disorder, unspecified
CPT/HCPCS: 36415; 80048-TC; 80076-TC; 81001; 83690-TC; 83735-TC; 84100-TC; 85025-TC; 87081-TC; C9113; C9803; G0378; G0480; J1885; J2060; J2270; J2405; J3475; J3480; J7030; J7040